=== PATIENT | male | born 1995 | race American Indian/Alaskan Native ===

== ENCOUNTER 2017-03-07 09:18 | Emergency (ER) | payer SELFPAY ==
[2017-03-07 09:27] VITALS: BP 150/90
[2017-03-07] MEDS ORDERED: XYLOCAINE 1% MPF 5 mL INFILTRATI ONE (09:34)
[2017-03-07] MEDS ORDERED: ROCEPHIN IM ONE (09:34)
--- NOTE | 2017-03-07 09:39 | Emergency Department Report ---
Abscess Boil HPI - HPI Chief Complaint: Skin/Abscess/Foreign Body Stated Complaint: FACIAL SWELLING Time Seen by Provider: 03/07/17 09:34 Duration: 1 Day Location: Other (R FACE) Severity: Mild History: Yes Pain, No Fever, No Purulent Drainage, No Numbness, No Foreign Body , No Previous History, No Insect Bite HPI: BOIL R FACE. NO DENTAL CARIES ABSCESS. NO FEVER. NO S/S SYSTEMIC ILLNESS. Home Medications: Previous Rx's Medication Instructions Recorded Last Taken Type Sulfamethoxazole/Trimethoprim 1 each PO BID #14 tablet 03/07/17 Unknown Rx [Bactrim Ds Tablet] Allergies/Adverse Reactions: Allergies Allergy/AdvReac Type Severity Reaction Status Date / Time No Known Allergies Allergy Unverified 03/07/17 09:27 ED Review of Systems ROS: Stated complaint: FACIAL SWELLING Other details as noted in HPI Comment: All other systems reviewed and negative Skin: other (R FACE BOIL) ED Past Medical Hx - Past Medical History Previous Medical History?: No - Surgical History Past Surgical History?: No - Social History Smoking Status: Current Every Day Smoker Substance Use Type: Alcohol, Marijuana - Medications Home Medications: Home Medications Medication Instructions Recorded Confirmed Last Taken Type Sulfamethoxazole/Trimethoprim 1 each PO BID #14 tablet 03/07/17 Unknown Rx [Bactrim Ds Tablet] ED Abscess Boil Physical Exam - Exam General: Vital signs noted. No distress. Alert and acting appropriately. Front/Back of Body, Lg (Color): 1 - AREA OF BOIL. NOT INVOLVING EYE. NO MASTOID TENDERNESS. NO LYMPHADENOPATHY. NON TOXIC Size: 2 cm Exam: Yes Tenderness, Yes Normal Neurologic Exam, Yes Normal Circulation, No Fluctuance, No Surrounding Cellulites/Erythema, No Lymphangitis, No Crepitation , No Heart Murmur ED Course Vital Signs 03/07/17 09:25 Temperature 98 F Pulse Rate 82 Respiratory 20 Rate Blood Pressure 150/90 O2 Sat by Pulse 100 Oximetry - Reevaluation(s) Reevaluation #1: 03/07/17 09:36 VSS NO FEVER NON TOXIC MEDICATED IM DO NOT WANT TO CUT HIS FACE DISCUSSED WITH PT Critical care attestation.: If time is entered above; I have spent that time in minutes in the direct care of this critically ill patient, excluding procedure time. ED Disposition Clinical Impression: Boil Disposition: DC-01 TO HOME OR SELFCARE Is pt being admited?: No Does the pt Need Aspirin: No Condition: Stable Instructions: Furunculosis and Carbunculosis (ED) Additional Instructions: WARM COMPRESSES TO FACE WANT THIS TO POP ON ITS OWN MED ORDERED DO NOT PICK THE BUMP FOLLOW UP PCP Referrals: SHANAE MARIO MD [Staff Physician] - 3-5 Days Time of Disposition: 09:35
== END 2017-03-07 10:10 | disposition home or self-care (01) ==
LOC: ED 09:18
DX: R22.0 Localized swelling, mass and lump, head (principal); F17.200 Nicotine dependence, unspecified, uncomplicated; F12.10 Cannabis abuse, uncomplicated
CPT/HCPCS: 96372; 99282; J0696

== ENCOUNTER 2017-03-12 11:00 | Emergency (ER) | payer SELFPAY ==
[2017-03-12 11:18] VITALS: BP 147/84
--- NOTE | 2017-03-12 12:38 | Emergency Department Report ---
- General Chief complaint: Skin/Abscess/Foreign Body Stated complaint: BOIL ON FACE Time Seen by Provider: 03/12/17 12:28 Source: patient Mode of arrival: Ambulatory Limitations: No Limitations - History of Present Illness Initial comments: Patient here reported that he has a boil to the right side of his face and he said he was here on 03/07/2017 and he was placed on antibiotics. He said he still have some antibiotic left. Medical records reflect patient was treated with Bactrim DS one tablet twice a day for 7 days. Patient said pain is 6 out of 10 and he uses Motrin which helps a little. He cities within put in some topical [id number] ointment on area. He said the swelling has gone down a lot but it still swollen. Pain is worse when he opens his mouth beyond. Also painful to touch. Denies any fever or chills. Denies any drainage inside. MD complaint: abscess/boil Onset/Timin -: week(s) Tetanus Up to Date: yes Location: face (right facial area) Severity: moderate Severity scale (0 -10): 6 Quality: sharp Consistency: intermittent Improves with: rest Worsens with: palpation, other (Open and closing mouth) Context: other (patient reports that he was still that he has infection on his face from infected hair follicle) Associated symptoms: denies other symptoms Treatments Prior to Arrival: OTC topical medication, antibiotic, NSAID - Related Data Previous Rx's Medication Instructions Recorded Last Taken Type Sulfamethoxazole/Trimethoprim 1 each PO BID #14 tablet 03/07/17 Unknown Rx [Bactrim Ds Tablet] Acetaminophen/Codeine [Tylenol 1 tab PO Q6H PRN 3 Days #12 tab 03/12/17 Unknown Rx /Codeine # 3 tab] Clindamycin HCl 300 mg PO Q8H 10 Days #30 capsule 03/12/17 Unknown Rx Ibuprofen [Motrin] 600 mg PO Q8H PRN 5 Days #15 tablet 03/12/17 Unknown Rx Allergies Allergy/AdvReac Type Severity Reaction Status Date / Time No Known Allergies Allergy Unverified 03/07/17 09:27 Abscess Boil HPI - HPI Chief Complaint: Skin/Abscess/Foreign Body Stated Complaint: BOIL ON FACE Time Seen by Provider: 03/12/17 12:28 Home Medications: Previous Rx's Medication Instructions Recorded Last Taken Type Sulfamethoxazole/Trimethoprim 1 each PO BID #14 tablet 03/07/17 Unknown Rx [Bactrim Ds Tablet] Acetaminophen/Codeine [Tylenol 1 tab PO Q6H PRN 3 Days #12 tab 03/12/17 Unknown Rx /Codeine # 3 tab] Clindamycin HCl 300 mg PO Q8H 10 Days #30 capsule 03/12/17 Unknown Rx Ibuprofen [Motrin] 600 mg PO Q8H PRN 5 Days #15 tablet 03/12/17 Unknown Rx Allergies/Adverse Reactions: Allergies Allergy/AdvReac Type Severity Reaction Status Date / Time No Known Allergies Allergy Unverified 03/07/17 09:27 ED Review of Systems ROS: Stated complaint: BOIL ON FACE Other details as noted in HPI Comment: All other systems reviewed and negative Constitutional: no symptoms reported ENT: denies: ear pain, throat pain, congestion Respiratory: no symptoms reported Cardiovascular: denies: chest pain, palpitations, dyspnea on exertion, edema, syncope, paroxysmal nocturnal dyspnea Gastrointestinal: denies: abdominal pain, nausea, vomiting, diarrhea, constipation Musculoskeletal: denies: back pain, joint swelling, arthralgia, myalgia Skin: other Neurological: denies: headache, weakness, numbness, paresthesias, confusion, abnormal gait (boil to right facial area) ED Past Medical Hx - Past Medical History Previous Medical History?: No - Surgical History Past Surgical History?: No - Family History Family history: no significant - Social History Smoking Status: Never Smoker Substance Use Type: None - Medications Home Medications: Home Medications Medication Instructions Recorded Confirmed Last Taken Type Sulfamethoxazole/Trimethoprim 1 each PO BID #14 tablet 03/07/17 Unknown Rx [Bactrim Ds Tablet] Acetaminophen/Codeine [Tylenol 1 tab PO Q6H PRN 3 Days #12 tab 03/12/17 Unknown Rx /Codeine # 3 tab] Clindamycin HCl 300 mg PO Q8H 10 Days #30 capsule 03/12/17 Unknown Rx Ibuprofen [Motrin] 600 mg PO Q8H PRN 5 Days #15 tablet 03/12/17 Unknown Rx ED Physical Exam - General Limitations: No Limitations General appearance: alert, in no apparent distress - Head Head exam: Present: atraumatic, normocephalic, normal inspection - Eye Eye exam: Present: normal appearance, PERRL, EOMI. Absent: periorbital swelling , periorbital tenderness Pupils: Present: normal accommodation - ENT ENT exam: Present: normal exam, normal orophraynx, mucous membranes moist - Neck Neck exam: Present: normal inspection, full ROM, other (no C-spine tenderness). Absent: tenderness, meningismus, lymphadenopathy - Respiratory Respiratory exam: Present: normal lung sounds bilaterally. Absent: respiratory distress, chest wall tenderness, accessory muscle use - Cardiovascular Cardiovascular Exam: Present: regular rate, normal rhythm, normal heart sounds. Absent: systolic murmur, diastolic murmur - GI/Abdominal GI/Abdominal exam: Present: soft, normal bowel sounds. Absent: distended, tenderness, guarding, rebound, rigid - Extremities Exam Extremities exam: Present: normal inspection, full ROM, normal capillary refill , other (clubbing, cyanosis or edema. +2 pulses to all extremities. No neurovascular compromise). Absent: tenderness, pedal edema, joint swelling, calf tenderness - Back Exam Back exam: Present: normal inspection, full ROM. Absent: tenderness, CVA tenderness (R), CVA tenderness (L), muscle spasm, paraspinal tenderness, vertebral tenderness, rash noted - Neurological Exam Neurological exam: Present: alert, oriented X3, normal gait - Psychiatric Psychiatric exam: Present: normal affect, normal mood - Skin Skin exam: Present: warm, dry, intact, other (a crespo with 3 cm x 3.5 cm of erythema to the right facial area with 2 cm indurated, minimal fluctuant area to the center of erythema. Tender to palpate) - Expanded Skin Exam Expanded Type of lesion: Present: abscess Distribution of rash: face (right facial area) Description of rash: Present: size (3 cm x 3.5 cm of erythema with 2 cm indurated, mild fluctuance to Center), tenderness, erythematous, swelling, fluctuant, indurated. Absent: macular, papular, vesicular, blisters, confluent , bullous, petechial, purpuic, discharge ED Course Vital Signs 03/12/17 11:15 Temperature 98.2 F Pulse Rate 80 Respiratory 16 Rate Blood Pressure 147/84 O2 Sat by Pulse 100 Oximetry - Reevaluation(s) Reevaluation #1: 03/12/17 14:39 received Rocephin 1 g IM in emergency room for cellulitis and abscess of the face. No adverse reaction. - I & D Right Face Type of Procedure: Complex Site: right facial area Blade Size: 18-gauge needle I & D Procedure: betadine prep, sterile drapes applied, sterile dressing applied , gauze wick placed Progress: Procedure: Vision and drainage to abscess right facial area. 3 cm x 3.5 cm of erythema with 2 cm of induration with minimal fluctuance. Her procedure, area prepped and cleansed with iodine followed by normal saline. Topical LET applied to site. After 10 minutes, 0.5 mL of 0 point 0.5% Marcaine injected to area with #18-gauge needle and small amount of clumps, cottage cheeselike yellowish drainage expressed from side. She is still with some induration and swelling. Tetanus vaccine is up-to-date per patient. Area cleansed with normal saline and 2 x 2 dressing placed the site and reinforced with tape. Patient tolerated procedure well. Patient to return in 3 days for evaluation and possible removal of packing. ED Medical Decision Making - Medical Decision Making ED Course: It would abscess and cellulitis to right facial area. He was seen in this ER 5 days ago and was placed on Bactrim DS. He said swelling improved a little but he still has abscess on his face.. Physical findings for 3 cm x 3.5 cm erythema area to right facial area with 2 cm of induration and minimal fluctuance to Center surrounded by erythema. Incision and drainage procedure done. Please refer to procedure note for detail. Patient given Rocephin 1 g IM and prior cleaning for abscess and cellulitis and I discussed with him that he should continue to take his Bactrim until finished since he has 2 days left and I will start him on clindamycin. I also discussed him that he needs to apply warm compresses to the site 3-4 times a day to facilitate softening of abscess and drainage. She voiced understanding discharge diagnosis and treatment plan/follow-up. Discharged home with prescription for clindamycin, Motrin and Tylenol and to return to the emergency room in 3 days. Critical care attestation.: If time is entered above; I have spent that time in minutes in the direct care of this critically ill patient, excluding procedure time. ED Disposition Clinical Impression: Cellulitis and abscess of face, Encounter for incision and drainage procedure, Facial pain Disposition: TO HOME OR SELFCARE Is pt being admited?: No Does the pt Need Aspirin: No Condition: Stable Instructions: Abscess Incision and Drainage (ED), Cellulitis (ED), Acute Wound Care (ED) Additional Instructions: Take antibiotic as prescribed and please remember to finish Bactrim DS Follow-up with your primary care physician and if he do not have a primary care physician follow up with [facility] Keep affected area clean and dry. Not drive or operate heavy machinery while taking Tylenol No. 3 as this medication causes drowsiness Apply warm compresses to affected area 3-4 times a day. Followed discharge instruction on acute wound care . His return to the emergency room in 3 days for evaluation of wound to right face and possible removal of packing. Please return to emergency room if you develop increasing redness, streaking, fever, difficulty moving in and the left forearm and increase in pain. Prescriptions: Acetaminophen/Codeine [Tylenol /Codeine # 3 tab] 1 tab PO Q6H PRN 3 Days #12 tab PRN Reason: Pain, Moderate (4-6) Clindamycin HCl 300 mg PO Q8H 10 Days #30 capsule Ibuprofen [Motrin] 600 mg PO Q8H PRN 5 Days #15 tablet PRN Reason: Pain Referrals: PRIMARY CARE, [Primary Care Provider] - 3-5 Days [facility] [Outside] - 3-5 Days Return to, Emergency room [Other] - 03/15/17 Forms: Work/School Release Form(ED)
[2017-03-12] MEDS ORDERED: MARCAINE 0.5% INFILTRATI ONE (12:39)
[2017-03-12] MEDS ORDERED: ROCEPHIN IM STA (12:39)
[2017-03-12] MEDS ORDERED: LET TOPICAL TP ONE (12:39)
[2017-03-12] MEDS ORDERED: XYLOCAINE 1% MPF 5 mL INFILTRATI ONE (12:39)
== END 2017-03-12 15:02 | disposition home or self-care (01) ==
LOC: ED 11:00
DX: L03.211 Cellulitis of face (principal); R51 Headache
CPT/HCPCS: 10061; 96372; 99282; J0696

== ENCOUNTER 2017-03-13 20:16 | Emergency (ER) | payer OTHER ==
--- NOTE | 2017-03-14 01:53 | Emergency Department Report ---
ED Recheck HPI - General Chief Complaint: Laceration/Recheck/Suture Stated Complaint: REEVALUATION OF WOUND Time Seen by Provider: 03/14/17 01:37 Source: patient Mode of arrival: Ambulatory Limitations: No Limitations - History of Present Illness Initial Comments: 21-year-old male presents for wound check right side face. States he had abscess on his right side upper cheek area incised and drained approximately 48 hours ago. Denies fever or chills denies significant pus drainage. States symptoms have somewhat improved. Patient states that he had a scheduled wound reevaluation and another 48 hours but came today because he is worried that packing is buried in his face as he did not notice it when he changed his gauze. Patient denies any other complaints. States he has been taking medicines and antibiotics as prescribed. MD Complaint: wound re-check Onset/Timin -: days(s) Initial Visit For: abscess Returns Today for: wound recheck, other (concerned packing is buried underneath skin) Symptoms Since Prior Visit: no new symptoms Associated Symptoms: none - Related Data Previous Rx's Medication Instructions Recorded Last Taken Type Sulfamethoxazole/Trimethoprim 1 each PO BID #14 tablet 03/07/17 Unknown Rx [Bactrim Ds Tablet] Acetaminophen/Codeine [Tylenol 1 tab PO Q6H PRN 3 Days #12 tab 03/12/17 Unknown Rx /Codeine # 3 tab] Clindamycin HCl 300 mg PO Q8H 10 Days #30 capsule 03/12/17 Unknown Rx Ibuprofen [Motrin] 600 mg PO Q8H PRN 5 Days #15 tablet 03/12/17 Unknown Rx Allergies Allergy/AdvReac Type Severity Reaction Status Date / Time No Known Allergies Allergy Unverified 03/07/17 09:27 ED Review of Systems ROS: Stated complaint: REEVALUATION OF WOUND Other details as noted in HPI Constitutional: denies: chills, fever Eyes: denies: eye pain, eye discharge, vision change ENT: denies: ear pain, throat pain Respiratory: denies: cough, shortness of breath, wheezing Cardiovascular: denies: chest pain, palpitations Endocrine: no symptoms reported Gastrointestinal: denies: abdominal pain, nausea, diarrhea Genitourinary: denies: urgency, dysuria Musculoskeletal: denies: back pain, joint swelling, arthralgia Skin: as per HPI. denies: rash, lesions Neurological: denies: headache, weakness, paresthesias Psychiatric: denies: anxiety, depression Hematological/Lymphatic: denies: easy bleeding, easy bruising ED Past Medical Hx - Past Medical History Previous Medical History?: No - Surgical History Past Surgical History?: No - Social History Smoking Status: Current Every Day Smoker Substance Use Type: Marijuana - Medications Home Medications: Home Medications Medication Instructions Recorded Confirmed Last Taken Type Sulfamethoxazole/Trimethoprim 1 each PO BID #14 tablet 03/07/17 Unknown Rx [Bactrim Ds Tablet] Acetaminophen/Codeine [Tylenol 1 tab PO Q6H PRN 3 Days #12 tab 03/12/17 Unknown Rx /Codeine # 3 tab] Clindamycin HCl 300 mg PO Q8H 10 Days #30 capsule 03/12/17 Unknown Rx Ibuprofen [Motrin] 600 mg PO Q8H PRN 5 Days #15 tablet 03/12/17 Unknown Rx ED Physical Exam - General Limitations: No Limitations General appearance: alert, in no apparent distress - Head Head exam: Present: atraumatic - Expanded Head Exam Expanded Head exam: Present: other (incised abscess right side face) 1 - Site of abscess. - Eye Eye exam: Present: normal appearance, PERRL, EOMI - ENT ENT exam: Present: mucous membranes moist - Neck Neck exam: Present: normal inspection - Respiratory Respiratory exam: Present: normal lung sounds bilaterally. Absent: respiratory distress - Cardiovascular Cardiovascular Exam: Present: regular rate, normal rhythm. Absent: systolic murmur, diastolic murmur, rubs, gallop - GI/Abdominal GI/Abdominal exam: Present: soft, normal bowel sounds - Rectal Rectal exam: Present: deferred - Extremities Exam Extremities exam: Present: normal inspection - Back Exam Back exam: Present: normal inspection - Neurological Exam Neurological exam: Present: alert, oriented X3 - Psychiatric Psychiatric exam: Present: normal affect, normal mood - Skin Skin exam: Present: warm, dry, intact, normal color. Absent: rash ED Course Vital Signs 03/14/17 03/14/17 03/14/17 01:26 02:07 02:08 Temperature 98.6 F Pulse Rate 61 Respiratory 18 16 16 Rate Blood Pressure 124/57 Blood Pressure [Left] O2 Sat by Pulse 100 Oximetry 03/14/17 02:34 Temperature Pulse Rate 67 Respiratory 18 Rate Blood Pressure Blood Pressure 127/62 [Left] O2 Sat by Pulse 100 Oximetry ED Recheck MDM - Medical Decision Making A/P: Wound check abscess right side face 1-I found the packing entwined in the gauze that was placed on the patient's face. I repacked the wound with approximately 2-1/2 inches of quarter-inch iodoform gauze and physically showed patient the tip of the gauze sticking out of the abscess site. 2-I advised the patient to return in 48-72 hours for wound check and removal of packing. 3-patient advised to continue taking his antibiotics as prescribed Critical care attestation.: If time is entered above; I have spent that time in minutes in the direct care of this critically ill patient, excluding procedure time. ED Disposition Clinical Impression: Encounter for wound re-check Disposition: DC-01 TO HOME OR SELFCARE Is pt being admited?: No Does the pt Need Aspirin: No Condition: Stable Instructions: Acute Wound Care (ED), Abscess (ED) Additional Instructions: pt advised to return for wound check on 03/16/17 Referrals: [facility] [Outside] - 3-5 Days Forms: Work/School Release Form(ED)
[2017-03-14] MEDS ORDERED: MOTRIN PO ONE (02:05)
[2017-03-14] MEDS ORDERED: TYLENOL #3 PO ONE (02:05)
[2017-03-14] MEDS ORDERED: TYLENOL #3 ONE (02:07)
[2017-03-14] MEDS ORDERED: MOTRIN ONE (02:07)
[2017-03-14 02:35] VITALS: BP 127/62
== END 2017-03-14 02:35 | disposition home or self-care (01) ==
LOC: ED 20:16
DX: Z48.00 Encounter for change or removal of nonsurgical wound dressing (principal); L02.01 Cutaneous abscess of face; F12.10 Cannabis abuse, uncomplicated; F17.200 Nicotine dependence, unspecified, uncomplicated
CPT/HCPCS: 99282

== ENCOUNTER 2017-03-16 19:49 | Emergency (ER) | payer SELFPAY ==
[2017-03-16 20:15] VITALS: BP 151/93
--- NOTE | 2017-03-16 21:17 | Emergency Department Report ---
ED Recheck HPI - General Chief Complaint: Laceration/Recheck/Suture Stated Complaint: WOUND CARE Time Seen by Provider: 03/16/17 20:54 Source: patient Mode of arrival: Ambulatory Limitations: No Limitations - History of Present Illness Initial Comments: This is a 21-year-old male nontoxic, well nourished in appearance, no acute signs of distress presents to the ED with c/o of abscess recheck. Patient he was 2 days ago and received incision and drainage towards the right cheek region. Patient states that he is currently taking antibiotics. Patient denies any pus, drainage, fever, chills, nausea, vomiting, chest pain shortness of breath. Patient denies any allergies or past medical history. MD Complaint: wound re-check -: days(s) (2) Initial Visit For: abscess Returns Today for: wound recheck Symptoms Since Prior Visit: no new symptoms, improved Context: planned re-check Associated Symptoms: none. denies: fever, chills, chest pain, shortness of breath, rash, malaise, nasuea, abdominal pain - Related Data Previous Rx's Medication Instructions Recorded Last Taken Type Sulfamethoxazole/Trimethoprim 1 each PO BID #14 tablet 03/07/17 Unknown Rx [Bactrim Ds Tablet] Acetaminophen/Codeine [Tylenol 1 tab PO Q6H PRN 3 Days #12 tab 03/12/17 Unknown Rx /Codeine # 3 tab] Clindamycin HCl 300 mg PO Q8H 10 Days #30 capsule 03/12/17 Unknown Rx Ibuprofen [Motrin] 600 mg PO Q8H PRN 5 Days #15 tablet 03/12/17 Unknown Rx Allergies Allergy/AdvReac Type Severity Reaction Status Date / Time No Known Allergies Allergy Unverified 03/07/17 09:27 ED Review of Systems ROS: Stated complaint: WOUND CARE Other details as noted in HPI Constitutional: denies: chills, fever Eyes: denies: eye pain, eye discharge, vision change ENT: denies: ear pain, throat pain Respiratory: denies: cough, shortness of breath, wheezing Cardiovascular: denies: chest pain, palpitations Endocrine: no symptoms reported Gastrointestinal: denies: abdominal pain, nausea, diarrhea Genitourinary: denies: urgency, dysuria Musculoskeletal: denies: back pain, joint swelling, arthralgia Skin: denies: rash, lesions Neurological: denies: headache, weakness, paresthesias Psychiatric: denies: anxiety, depression Hematological/Lymphatic: denies: easy bleeding, easy bruising ED Past Medical Hx - Past Medical History Previous Medical History?: No - Surgical History Past Surgical History?: No - Social History Smoking Status: Current Every Day Smoker Substance Use Type: Alcohol - Medications Home Medications: Home Medications Medication Instructions Recorded Confirmed Last Taken Type Sulfamethoxazole/Trimethoprim 1 each PO BID #14 tablet 03/07/17 Unknown Rx [Bactrim Ds Tablet] Acetaminophen/Codeine [Tylenol 1 tab PO Q6H PRN 3 Days #12 tab 03/12/17 Unknown Rx /Codeine # 3 tab] Clindamycin HCl 300 mg PO Q8H 10 Days #30 capsule 03/12/17 Unknown Rx Ibuprofen [Motrin] 600 mg PO Q8H PRN 5 Days #15 tablet 03/12/17 Unknown Rx ED Physical Exam - General Limitations: No Limitations General appearance: alert, in no apparent distress - Head Head exam: Present: atraumatic, normocephalic - Eye Eye exam: Present: normal appearance - ENT ENT exam: Present: mucous membranes moist - Neck Neck exam: Present: normal inspection - Respiratory Respiratory exam: Present: normal lung sounds bilaterally. Absent: respiratory distress - Cardiovascular Cardiovascular Exam: Present: regular rate, normal rhythm. Absent: systolic murmur, diastolic murmur, rubs, gallop - GI/Abdominal GI/Abdominal exam: Present: soft, normal bowel sounds - Rectal Rectal exam: Present: deferred - Extremities Exam Extremities exam: Present: normal inspection - Back Exam Back exam: Present: normal inspection - Neurological Exam Neurological exam: Present: alert, oriented X3 - Psychiatric Psychiatric exam: Present: normal affect, normal mood - Skin Skin exam: Present: warm, dry, intact, normal color. Absent: rash - Other Other exam information: 1/4 packing to his right cheek. No induration or fluctuance. No signs of any pus or drainage. ED Course Vital Signs 03/16/17 20:12 Temperature 98.7 F Pulse Rate 77 Respiratory 18 Rate Blood Pressure 151/93 O2 Sat by Pulse 100 Oximetry - Reevaluation(s) Reevaluation #1: 03/16/17 21:15 Patient is speaking in full sentences with no signs of distress noted. Critical care attestation.: If time is entered above; I have spent that time in minutes in the direct care of this critically ill patient, excluding procedure time. ED Disposition Clinical Impression: Abscess packing removal Disposition: DC- TO HOME OR SELFCARE Is pt being admited?: No Does the pt Need Aspirin: No Condition: Stable Instructions: Acute Wound Care (ED) Additional Instructions: Follow-up with a primary care doctor in 3-5 days or if symptoms worsen and continue return to emergency room as soon as possible. Continue taking antibiotics as prescribed. Keep area clean and dry. Referrals: PRIMARY CARE, [Primary Care Provider] - 3-5 Days CIERA GRAYSON MD [Staff Physician] - 3-5 Days [facility] [Outside] - 3-5 Days Forms: Work/School Release Form(ED)
== END 2017-03-16 21:20 | disposition home or self-care (01) ==
LOC: ED 19:49
DX: Z48.01 Encounter for change or removal of surgical wound dressing (principal); F17.200 Nicotine dependence, unspecified, uncomplicated

== ENCOUNTER 2021-03-02 09:10 | Emergency (ER) | payer SELFPAY ==
[2021-03-02] MEDS ORDERED: IBUPROFEN 600 MG TAB PO ONE (09:26)
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
--- NOTE | 2021-03-02 10:13 | XRay Report ---
XR toe(s) 2+V RT INDICATION: 2nd toe pain/injury. COMPARISON: No relevant prior imaging study available. FINDINGS: There is dorsal angulation of the middle phalanx of the right second toe with respect to the proximal phalanx. No foreign bodies in the soft tissues, second toe soft tissue swelling is noted. IMPRESSION: 1. Second toe PIP joint dislocation. Repeat radiographs would be useful after reduction to evaluate f or fracture on the plantar aspect of the base of the middle phalanx. Signer Name: Leandro Reyna MD Signed: 03/02/2021 10:08 AM Workstation Name: [id number]
[2021-03-02] MEDS ORDERED: BUPIVACAINE/PF (0.5%) 5 MG/1 ML 10 ML VIAL INFILTRATI ONE (10:29)
[2021-03-02 11:02] VITALS: BP 122/73
--- NOTE | 2021-03-02 12:12 | XRay Report ---
RIGHT TOE, 2 VIEWS INDICATION / CLINICAL INFORMATION: post reduction /dislocation. COMPARISON: Radiographs from earlier today which demonstrated dislocation of the second toe PIP joint FINDINGS: Patient has undergone successful reduction of the previously dislocated second digit PIP joint. Howev er, there is now visible avulsion fracture from the plantar aspect of the base of the middle phalanx. The avulsed fracture fragment measures 4 mm. IMPRESSION: 1. Successful reduction/relocation of previously noted dislocated second digit PIP joint. 2. There is now visible small plantar avulsion fracture from the base of the middle phalanx, second d igit. Signer Name: Deepthi Angulo MD Signed: 03/02/2021 12:08 PM Workstation Name: [id number]
== END 2021-03-02 12:36 | disposition home or self-care (01) ==
LOC: ED 09:10
DX: S93.114A Dislocation of interphalangeal joint of right lesser toe(s), initial encounter (principal); S92.521A Displaced fracture of middle phalanx of right lesser toe(s), initial encounter for closed fracture; W17.89XA Other fall from one level to another, initial encounter; Y93.89 Activity, other specified; Y92.89 Other specified places as the place of occurrence of the external cause; Y99.8 Other external cause status
CPT/HCPCS: 28660; 73660; 99283; J3490